=== PATIENT | male | born 2000 | race Caucasian/White ===

== ENCOUNTER 2020-06-06 10:53 | Emergency (ER) | payer SELFPAY ==
[2020-06-06 10:55] VITALS: BP 122/77; PULSE 81; RESP 18; O2SAT 97; BMI 20.3
[2020-06-06 11:15] VITALS: PULSE 84
--- NOTE | 2020-06-06 11:29 | XR_ITS ---
WS: [id number] Left hand, 3 views, 06/06/2020 Clinical Data: left thumb pain Comparison: None. Findings: No fractures or dislocations are seen. The soft tissues are unremarkable. The joint spaces are normal The left thumb is normal. XR/XR hand LT min 3V* [id number] Impression: Negative left hand.
--- NOTE | 2020-06-06 11:29 | W.ED.EXTPRO ---
HPI - Extremity Problem General: Chief complaint: Extremity Injury, Upper Stated complaint: Lt hand injury Time Seen by Provider: 06/06/20 11:26 History of Present Illness: HPI Narrative: This pleasant gentleman states that his left thumb got bent backwards 2 days ago while working at the [employer]. He said a piece of lumber pushed back. He says he is double jointed. And he said he rolled over in bed last night and felt a pop and is hurt since then. He would like it x-rayed and would like a note for work. Complaint: joint pain Onset (ago): day(s) Pain Consistency: intermittent Location: left and upper extremity Quality: aching Radiation: none Relieving factors: immobilization Exacerbating factors: range of motion Associated symptoms: Reports no associated symptoms; Deny fever(s) Review of Systems Const: Denies: fever(s) or chills Musc: Reports: joint pain (Left thumb injured when a board struck 2 days ago) Psych: Denies: anxiety or depression PFSH ED PFSH: Social History (Updated 03/29/19 @ 17:18 by Tamara Flores LPN) Smoking and tobacco status: current every day smoker Alcohol intake: current Alcohol intake frequency: holidays/special occasions only Physical Exam Const: COMMON NORMALS: no acute distress Extremity: LEFT UPPER EXTREMITY: Yes hand & digits (Left thumb tender at MCP joint no swelling noted. 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
[2020-06-06 12:16] VITALS: BP 126/74; PULSE 98; RESP 18; O2SAT 98
== END 2020-06-06 12:17 | disposition home or self-care (01) ==
PROVIDERS: Emergency Provider Nurse Practitioner Family
DX: S69.92XA Unspecified injury of left wrist, hand and finger(s), initial encounter (principal); X50.1XXA Overexertion from prolonged static or awkward postures, initial encounter; F17.210 Nicotine dependence, cigarettes, uncomplicated
CPT/HCPCS: 73130; 99282